=== PATIENT | male | born 1970 | race Caucasian/White ===

== ENCOUNTER 2022-10-20 23:41 | Emergency (ER) | payer OTHER, BC ==
[~2022-10-20 23:41] MED LIST: Iopamidol-370 76% 500 ML 1 ML ONE
[2022-10-21 00:27] LABS: #Eosinphils 0.1 thou/uL (0.0-0.7); #Lymphocytes 2.8 thou/uL (1.20-3.40); #Monocytes 0.3 thou/uL (0.11-0.59); %Basophils 0.5 % (0.0-1.0); %Lymphocytes 38.1 % (21.0-51.0); %Monocytes 4.6 % (0.0-10.0); %Neutrophils 54.8 % (42.0-75.0); Hemoglobin 14.9 g/dL (14.0-18.0); Mean Corpuscular HGB CONC 35.2 g/dL (32.0-36.0); Mean Corpuscular Volume 93.5 fl (78.0-98.0); Mean Platelet Volume 8.4 fL (7.4-10.4); Platelet Count 202 10x3/uL (130-400); RBC Distribution Width 11.2 % (11.5-14.5); Red Blood Cell (RBC) Count 4.51 mill/uL (4.70-6.10); White Blood Cell (WBC) Count 7.2 10x3/uL (4.8-10.8)
[2022-10-21] MEDS ORDERED: Fentanyl 100 MCG/2 ML VIAL ONE (00:38)
[2022-10-21] MEDS ORDERED: Boostrix 0.5 ML (Tdap) VIAL (>/=7 yrs of age) ONE (00:38)
[2022-10-21 00:42] LABS: INR-International Normal Ratio 0.9; PTT 27.3 sec (22.9-36.1)
[2022-10-21 00:51] LABS: ALT (SGPT) 28 U/L (8-55); AST (SGOT) 21 U/L (5-34); Alkaline Phosphatase 84 U/L (40-110); Anion Gap 12 mmol/L (10-20); BUN (Urea Nitrogen) 13 mg/dL (8.4-25.7); Bilirubin, Total 0.6 mg/dL (0.2-1.2); CK (CPK) 59 U/L (30-200); Calc. Creatinine Clearance 0 mL/min (70-130); Calcium 9.5 mg/dL (7.8-10.44); Carbon Dioxide 25 mmol/L (22-29); Chloride 96 mmol/L (98-107); Estimated GFR 88; Globulin 2.9 g/dL (2.4-3.5); Lipase 59 U/L (8-78); Potassium 4.1 mmol/L (3.5-5.1); Protein, Total 6.9 g/dL (6.0-8.3); Sodium 129 mmol/L (136-145)
[2022-10-21 00:54] LABS: Glucose 536 mg/dL (70-105)
[2022-10-21] MEDS ORDERED: Insulin Regular 300 UNITS/3 ML VIAL ONE (01:52)
== END 2022-10-21 02:50 | disposition home or self-care (01) ==
LOC: ERS 23:41
DX: S06.9X9A Unspecified intracranial injury with loss of consciousness of unspecified duration, initial encounter (principal); S30.0XXA Contusion of lower back and pelvis, initial encounter; S00.03XA Contusion of scalp, initial encounter; R73.9 Hyperglycemia, unspecified; V53.5XXA Driver of pick-up truck or van injured in collision with car, pick-up truck or van in traffic accident, initial encounter; Z23 Encounter for immunization
CPT/HCPCS: 36415; 70450; 71260; 72125; 74177; 80053; 82550; 83605; 83690; 85025; 85610; 85730; 86850; 86900; 86901; 90471; 90715; 96374; G0390; J1815; J3010; Q9967